=== PATIENT | male | born 1960 | race Caucasian/White ===

== ENCOUNTER 2025-09-14 10:11 | Outpatient (REF) | payer MEDICARE, SELFPAY ==
[2025-09-14 10:29] LABS: Abs Immature Grans 0.19 10^3/uL (0.0-0.06); HCT 29.8 % (40.0-50.0); HGB 9.4 g/dL (13.5-17.5); Immature Grans % 1.7 %; MCH 25.8 pg (27.0-33.0); MCHC 31.5 % (32.0-36.0); MCV 82 fL (80-95); MPV 9.0 fL (8.0-11.0); Platelet Count 323 10^3/uL (130-400); RBC 3.64 10^6/uL (4.36-5.78); RDW 17.7 % (11.8-14.1); RDW-SD 50.0 fL; WBC 11.02 10^3/uL (4.4-10.8)
[2025-09-14 10:46] LABS: Magnesium 1.0 mg/dL (1.6-2.6)
[2025-09-14 10:48] LABS: ALT 26 U/L (10-49); AST 21 U/L (<34); Albumin 4.3 g/dL (3.4-5.0); Alkaline Phosphatase 173 U/L (46-116); Anion Gap 10.1 mmol/L (3-11); BUN 20 mg/dL (9-23); Bilirubin, Total 0.20 mg/dL (0.2-1.2); CO2 22.9 mmol/L (20.0-31.0); Calcium 8.8 mg/dL (8.3-10.6); Chloride 107 mmol/L (98-107); Glucose 92 mg/dL (74-106); Potassium 4.5 mmol/L (3.5-5.1); Sodium 140 mmol/L (136-145); Total Protein 8.0 g/dL (5.7-8.2)
== END 2025-09-14 10:12 | disposition home or self-care (01) ==
LOC: LBN 10:11
PROVIDERS: Visit Provider Internal Medicine Hematology & Oncology
DX: C21.0 Malignant neoplasm of anus, unspecified (principal)
CPT/HCPCS: 80053; 83735; 85025